=== PATIENT | male | born 1955 | race Caucasian/White ===

== ENCOUNTER 2017-07-28 14:29 | Emergency (ER) | payer BC ==
[2017-07-28] MEDS ORDERED: ONDANSETRON HCL INJ/PF 4 MG/2 ML SDV IV ONE (14:44)
[2017-07-28] MEDS ORDERED: NORMAL SALINE 1000 ML 1,000 ML IV PRN (14:44)
--- NOTE | 2017-07-28 14:46 | ER Document Report ---
ED Medical Screen (RME) - General Chief Complaint: Nausea/Vomiting/Diarrhea Stated Complaint: VOMITING Time Seen by Provider: 07/28/17 14:31 Mode of Arrival: Ambulatory Information source: Patient TRAVEL OUTSIDE OF THE [place] IN LAST 30 DAYS: No - HPI Patient complains to provider of: Nausea vomiting and diarrhea Notes: 07/28/17 14:45 Patient is a 61-year-old male with a history of type 2 diabetes who presents to the emergency room today complaining of nausea, vomiting and diarrhea that started around 6:00 this morning, he is in town from [place] visiting for a wedding, he and his daughter both ate from the buffet last night and both of them are now vomiting she is checking in to be seen as well, patient states he took his metformin this morning but does not believe that he kept it down and is unsure what his blood sugar is as his lancets did not make it through the airport Past Medical History Renal/ Medical History: Denies: Hx Peritoneal Dialysis Physical Exam - Vital signs Vitals: Temp Pulse Resp BP Pulse Ox 98.3 F 135 H 16 130/83 H 96 07/28/17 14:32 07/28/17 14:32 07/28/17 14:32 07/28/17 14:32 07/28/17 14:32 Course - Vital Signs Vital signs: Temp Pulse Resp BP Pulse Ox 98.3 F 135 H 16 130/83 H 96 07/28/17 14:32 07/28/17 14:32 07/28/17 14:32 07/28/17 14:32 07/28/17 14:32
[2017-07-28 15:08] LABS: APPEARANCE,URINE CLEAR; BILIRUBIN,URINE NEGATIVE (NEGATIVE); GLUCOSE, URINE >=500 mg/dL (NEGATIVE); KETONES,URINE 20 mg/dL (NEGATIVE); LEUKOCYTE ESTERASE,URINE NEGATIVE (NEGATIVE); NITRITE,URINE NEGATIVE (NEGATIVE); PROTEIN,URINE NEGATIVE (NEGATIVE); URINE SPECIFIC GRAVITY 1.027; UROBILINOGEN,URINE NEGATIVE mg/dL (<2.0)
[2017-07-28] MEDS ORDERED: METOCLOPRAMIDE HCL INJ/PF 10 MG/2 ML SDV IV ONE (15:37)
[2017-07-28 15:43] LABS: HEMATOCRIT 47.9 % (37.9-51.0); HEMOGLOBIN 16.5 g/dL (13.5-17.0); HGB HCT DIFFERENCE 1.6; MEAN CORPUSCULAR HEMOGLOBIN 30.1 pg (27.0-33.4); MEAN CORPUSCULAR HGB CONC 34.4 g/dL (32.0-36.0); MEAN CORPUSCULAR VOLUME 88 fl (80-97); RED BLOOD COUNT 5.46 10^6/uL (4.35-5.55); RED CELL DISTRIBUTION WIDTH 13.1 % (11.5-14.0); WHITE BLOOD COUNT 14.3 10^3/uL (4.0-10.5)
--- NOTE | 2017-07-28 15:48 | ER Document Report ---
ED GI/ - General Chief Complaint: Nausea/Vomiting/Diarrhea Stated Complaint: VOMITING Time Seen by Provider: 07/28/17 14:31 Mode of Arrival: Ambulatory Information source: Patient TRAVEL OUTSIDE OF THE [place] IN LAST 30 DAYS: No - HPI Patient complains to provider of: Abdominal pain, Diarrhea, Vomiting Onset: This morning - 0600 Timing/Duration: Sudden Quality of pain: Cramping Severity at maximum: Moderate Severity in ED: Mild Context: Other - VISITIN, FROM [place] WENT TO [employer] YESTERDAY. denies: Bad food, Lifting, Out of the country travel, , Recent trauma Location: Epigastric, LUQ, LLQ, RUQ, RLQ Associated symptoms: Lightheaded. denies: Chills, Fever, Syncope Exacerbated by: Food Relieved by: Denies Similar symptoms previously: No Recently seen / treated by doctor: No Past Medical History - General Information source: Patient - Social History Smoking Status: Never Smoker Chew tobacco use (# tins/day): No Frequency of alcohol use: None Drug Abuse: None Lives with: Family Family History: None Patient has suicidal ideation: No Patient has homicidal ideation: No - Past Medical History Cardiac Medical History: Reports: Hx Hypertension Pulmonary Medical History: Reports: None Neurological Medical History: Reports: None Endocrine Medical History: Reports: Hx Diabetes Mellitus Type 2 Renal/ Medical History: Reports: None. Denies: Hx Peritoneal Dialysis Malignancy Medical History: Reports None GI Medical History: Reports: None Musculoskeltal Medical History: Reports None Psychiatric Medical History: Reports: None Surgical Hx: Negative Review of Systems - Review of Systems Constitutional: Weakness EENT: No symptoms reported Cardiovascular: No symptoms reported Respiratory: No symptoms reported Gastrointestinal: See HPI Genitourinary: No symptoms reported Musculoskeletal: No symptoms reported Skin: No symptoms reported Neurological/Psychological: Weakness Physical Exam - Vital signs Vitals: Temp Pulse Resp BP Pulse Ox 98.3 F 135 H 16 130/83 H 96 07/28/17 14:32 07/28/17 14:32 07/28/17 14:32 07/28/17 14:32 07/28/17 14:32 Interpretation: Tachycardic. No: Hypotensive, Tachypneic, Febrile - General General appearance: Appears well, Alert In distress: None - HEENT Head: Normocephalic Eyes: Normal Conjunctiva: Normal Ears: Normal Nasal: Normal Mouth/Lips: Normal Mucous membranes: Dry Pharynx: Normal - Respiratory Respiratory status: No respiratory distress Chest status: Nontender - Cardiovascular Rhythm: Regular Heart sounds: Normal auscultation Murmur: No - Abdominal Inspection: Normal Bowel sounds: Normal - Extremities General upper extremity: Normal inspection General lower extremity: Normal inspection - Neurological Neuro grossly intact: Yes Cognition: Normal Orientation: AAOx4 - Psychological Associated symptoms: Normal affect, Normal mood - Skin Skin Temperature: Warm Skin Moisture: Dry Skin Color: Normal Skin Turgor: Elastic Course - Re-evaluation Re-evalutation: 07/28/17 20:02 Patient states he feels much better. No further pain or nausea. Tolerating clear fluids well. Results of laboratory studies discussed. Will discharge with anti-emetics and instructions for clear liquid diet and gradually advance. - Vital Signs Vital signs: Temp Pulse Resp BP Pulse Ox 98.3 F 135 H 16 130/83 H 96 07/28/17 14:32 07/28/17 14:32 07/28/17 14:32 07/28/17 14:32 07/28/17 14:32 - Laboratory Result Diagrams: 07/28/17 15:20 07/28/17 19:14 Laboratory results interpreted by me: 07/28/17 07/28/17 07/28/17 14:55 15:01 15:20 WBC 14.3 H Seg Neuts % (Manual) 87 H Band Neutrophils % 10 H Lymphocytes % (Manual) 0 L Abs Neuts (Manual) 13.9 H Abs Lymphs (Manual) 0.0 L VBG pCO2 VBG HCO3 Carbon Dioxide BUN Glucose POC Glucose 311 H Urine Glucose (UA) >=500 H Urine Ketones 20 H 07/28/17 07/28/17 07/28/17 15:20 15:20 18:40 WBC Seg Neuts % (Manual) Band Neutrophils % Lymphocytes % (Manual) Abs Neuts (Manual) Abs Lymphs (Manual) VBG pCO2 31.6 L VBG HCO3 19.6 L Carbon Dioxide 19 L BUN 29 H Glucose 329 H POC Glucose Urine Glucose (UA) >=500 H Urine Ketones 20 H 07/28/17 19:14 WBC Seg Neuts % (Manual) Band Neutrophils % Lymphocytes % (Manual) Abs Neuts (Manual) Abs Lymphs (Manual) VBG pCO2 VBG HCO3 Carbon Dioxide BUN 27 H Glucose 290 H POC Glucose Urine Glucose (UA) Urine Ketones Discharge - Discharge Clinical Impression: Gastroenteritis, Dehydration Diabetes type 2, controlled Qualifiers: Diabetes mellitus complication status: without complication Diabetes mellitus research laboratory specialist insulin use: without research laboratory specialist use Qualified Code(s): E11.9 - Type 2 diabetes mellitus without complications Condition: Stable Disposition: HOME, SELF-CARE Instructions: Clear Liquid Diet ([facility]), Gastroenteritis (adult) ([facility]), Intravenous (IV) Fluids ([facility]), Antinausea Medication ([facility]), Dehydration ([facility]) Additional Instructions: CLEAR LIQUID DIET UNTIL APPETITE RETURNS, THEN GRADUALLY ADVANCE DIET. CONTINUE YOUR USUAL MEDICATIONS. YOU MAY TAKE ZOFRAN IF NEEDED FOR NAUSEA CONTROL. RETURN TO E.R. IF YOU FEEL YOU ARE GETTING WORSE IN ANY WAY, ANY TIME.
[2017-07-28 16:01] LABS: ALANINE AMINOTRANSFERASE 50 U/L (21-72); ALBUMIN 4.1 g/dL (3.5-5.0); ALKALINE PHOSPHATASE 118 U/L (38-126); ANION GAP 16 (5-19); ASPARTATE AMINO TRANSFERASE 18 U/L (17-59); BILIRUBIN,DIRECT 0.4 mg/dL (0.0-0.4); BILIRUBIN,TOTAL 1.3 mg/dL (0.2-1.3); BLOOD UREA NITROGEN 29 mg/dL (7-20); CALCIUM 8.7 mg/dL (8.4-10.2); CARBON DIOXIDE 19 mmol/L (22-30); CHLORIDE 102 mmol/L (98-107); CREATININE RESULT 0.92 mg/dL (0.52-1.25); GLUCOSE 329 mg/dL (75-110); LIPASE 26.5 U/L (23-300); POTASSIUM 4.7 mmol/L (3.6-5.0); SODIUM 137.4 mmol/L (137-145); TOTAL PROTEIN 6.4 g/dL (6.3-8.2)
[2017-07-28 16:07] LABS: BAND NEUTROPHILS % (MANUAL) 10 % (3-5); BASOPHILS % (MANUAL) 0 % (0-2); EOSINOPHILS % (MANUAL) 0 % (0-6); LYMPHOCYTES % (MANUAL) 0 % (13-45); RBC MORPHOLOGY COMMENT NORMO-CYTIC/CHROMIC; TOTAL CELLS COUNTED 100
[2017-07-28 16:11] LABS: VENOUS BLOOD BASE EXCESS -3.9 mmol/L; VENOUS BLOOD HCO3 19.6 mmol/L (20-32); VENOUS BLOOD PCO2 31.6 mmHg (35-63); VENOUS BLOOD PH 7.41 (7.30-7.42)
[2017-07-28] MEDS ORDERED: NORMAL SALINE 1000 ML 1,000 ML IV ONE (18:07)
[2017-07-28 19:26] LABS: APPEARANCE,URINE CLEAR; BILIRUBIN,URINE NEGATIVE (NEGATIVE); GLUCOSE, URINE >=500 mg/dL (NEGATIVE); KETONES,URINE 20 mg/dL (NEGATIVE); LEUKOCYTE ESTERASE,URINE NEGATIVE (NEGATIVE); NITRITE,URINE NEGATIVE (NEGATIVE); PROTEIN,URINE NEGATIVE (NEGATIVE); URINE SPECIFIC GRAVITY 1.024; UROBILINOGEN,URINE NEGATIVE mg/dL (<2.0)
[2017-07-28 19:37] LABS: ANION GAP 13 (5-19); BLOOD UREA NITROGEN 27 mg/dL (7-20); CALCIUM 8.5 mg/dL (8.4-10.2); CARBON DIOXIDE 23 mmol/L (22-30); CHLORIDE 104 mmol/L (98-107); GLUCOSE 290 mg/dL (75-110); POTASSIUM 4.5 mmol/L (3.6-5.0); SODIUM 140.3 mmol/L (137-145)
[2017-07-28] MEDS ORDERED: ONDANSETRON ODT 4 MG TAB (6 TAB/DSPK) PO PRN (20:13)
[2017-07-28 21:39] VITALS: BP 131/66
== END 2017-07-28 23:02 | disposition home or self-care (01) ==
LOC: ER 14:29
DX: K52.9 Noninfective gastroenteritis and colitis, unspecified (principal); E86.0 Dehydration; R11.2 Nausea with vomiting, unspecified; R10.84 Generalized abdominal pain; R42 Dizziness and giddiness; E11.9 Type 2 diabetes mellitus without complications; I10 Essential (primary) hypertension; R53.1 Weakness; R00.0 Tachycardia, unspecified
CPT/HCPCS: 99283; 96361; 96374; 96375; 36415; 82962; 83690; 85025; 80048; 80053; 81001; 82803; J2765; J2405; J7030